=== PATIENT | male | born 1955 | race Caucasian/White ===

== ENCOUNTER → 2023-03-09 09:45 | Outpatient (BNVA) | payer OTHER, SELFPAY | PROVIDERS: Visit Provider Nurse Practitioner | DX: M17.11 Unilateral primary osteoarthritis, right knee (principal); M25.561 Pain in right knee; M25.562 Pain in left knee; M54.9 Dorsalgia, unspecified; G89.29 Other chronic pain | CPT/HCPCS: 73562 ==

== ENCOUNTER → 2023-08-13 13:48 | Outpatient (BNVA) | payer OTHER, SELFPAY | PROVIDERS: PCP Nurse Practitioner; Visit Provider Emergency Medicine | DX: I48.91 Unspecified atrial fibrillation (principal); I48.0 Paroxysmal atrial fibrillation | CPT/HCPCS: 93005 ==

== ENCOUNTER 2023-09-04 12:17 | Outpatient (CLI) | payer OTHER, SELFPAY ==
--- NOTE | 2023-09-04 12:45 | USCV_ITS ---
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 [place]_ Indication: afib BP: 140 / 80 HR: 57 Rhythm: Sinus Technical Quality: Adequate MEASUREMENTS (Male / Female) Normal Values 2D ECHO LVOT Diameter 2.3 cm LV Ejection Fraction MOD 2C 63.4 % LV Ejection Fraction 2C AL 65.4 % LA Diameter 4.4 cm RA Systolic Volume 4C AL 64.8 ml RA Systolic Volume 4C MOD 61.9 ml LA Sys Volume AL 69.4 cm cubed LA Sys Volume Index AL 33.0 cm cubed/m squared Aorta at Sinotubular Diameter 2.9 cm IVC Diameter 2.0 cm M-MODE LA Ao Ratio MM 1.3 AV Cusp Separation MM 2.3 cm DOPPLER AV Peak Velocity 202.0 cm/s LVOT Peak Velocity 121.0 cm/s AV Area Cont Eq vti 2.5 cm squared AV Area Cont Eq pk 2.5 cm squared MV Peak Velocity 85.0 cm/s MV Area PHT 2.8 cm squared Mitral E to A Ratio 1.1 TV Peak Velocity 185.5 cm/s TR Peak Velocity 199.0 cm/s TR Peak Gradient 15.8 mmHg TV Peak E Velocity 69.0 cm/s Right Atrial Pressure 3.0 mmHg Pulmonary Artery Systolic Pressu 18.8 mmHg PV Peak Velocity 125.5 cm/s FINDINGS Left Ventricle Normal left ventricular size and systolic function, EF 64%. No regional wall motion abnormalities. Right Ventricle The right ventricle is normal in size and function. Right Atrium Mildly increased right atrial size. Left Atrium Mildly increased left atrial size. Mitral Valve Trace mitral valve regurgitation. Aortic Valve Trace aortic valve regurgitation. Tricuspid Valve No gross abnormalities noted.trace tricuspid valve regurgitation. Pulmonic Valve Trace pulmonary valve regurgitation. Pericardium Normal pericardium without effusion. Aorta Normal ascending aorta dimension. IVC The inferior vena cava appears normal. CONCLUSIONS Normal left ventricular size and systolic function, EF 64%. No regional wall motion abnormalities. Mild biatrial enlargement Trace mitral and tricuspid valve regurgitation. Trace aortic valve regurgitation. There is no pericardial effusion. There are no intracardiac masses. No similar previous studies are available for comparison Dr Fadi Dominguez MD FACC (Electronically Signed) Final Date: 04 Sep 2023 21:25 S
== END 2023-09-04 12:18 | disposition home or self-care (01) ==
LOC: RAD 12:18
PROVIDERS: PCP Nurse Practitioner; Visit Provider Nurse Practitioner
DX: I48.0 Paroxysmal atrial fibrillation (principal); I08.3 Combined rheumatic disorders of mitral, aortic and tricuspid valves
CPT/HCPCS: 93306

== ENCOUNTER → 2024-03-17 13:21 | Outpatient (BNVA) | payer OTHER, SELFPAY | PROVIDERS: PCP Nurse Practitioner; Visit Provider Nurse Practitioner | DX: I48.0 Paroxysmal atrial fibrillation (principal); Z23 Encounter for immunization | CPT/HCPCS: 80053; 85025; 93005 ==

== ENCOUNTER → 2025-02-28 14:34 | Outpatient (BNVA) | payer OTHER, SELFPAY | PROVIDERS: PCP Nurse Practitioner; Visit Provider Nurse Practitioner | DX: R63.4 Abnormal weight loss (principal) | CPT/HCPCS: 80053; 83036; 84439; 84443; 84481; 85025 ==